=== PATIENT | female | born 1935 | race Caucasian/White ===

== ENCOUNTER 2019-05-13 12:17 | Day surgery (SDC) | payer MEDICARE, OTHER ==
--- NOTE | 2019-05-13 07:23 | History and Physical - Ferro ---
CHIEF COMPLAINT/HISTORY OF CHIEF COMPLAINT: This patient presents with a history of an intractable post lumbar laminectomy radiculopathy. Due to the failure of all therapies, the patient is here for an intraspinal catheter infusion trial of Hydromorphone to determine if the implantation of a permanent system can be of value in pain control. PAST MEDICAL HISTORY: Noncontributory. PAST SURGICAL HISTORY: List to be provided, does include spinal surgery. EMPLOYMENT STATUS: Retired. MEDICATIONS ON ADMISSION: List to be provided. No blood thinners. ALLERGIES: BIAXIN AND ANA INHIBITORS. FAMILY/PSYCHOSOCIAL HISTORY: Social history - Noncontributory. Family history - Diabetes. SYSTEMS REVIEW: The patient is appropriate in no acute distress. The remainder of the systems review is positive for glasses and degenerative arthritis. PHYSICAL EXAMINATION: Height is 5'6", weight is 120. No vital signs. HEENT: Within normal limits. LUNGS: Clear. HEART: Rapid and regular. ABDOMEN: Nontender. MUSCULOSKELETAL: Examination of the musculoskeletal system shows diffuse tenderness lumbar spine. Range of motion does produce pain into the left leg across the outer front surface. Ambulation - Somewhat antalgic. Mild motor and sensory abnormalities to the left. NEUROLOGIC: Cranial nerves are intact. IMPRESSION: POST LUMBAR LAMINECTOMY SYNDROME, ICD-10 CODE M96.1 WITH RADICULOPATHY, ICD-10 CODE M54.16 AND M54.17. PLAN: The patient is here for an implanted spinal catheter infusion trial of Hydromorphone to determine if the implantation of a permanent pump can be of any value in pain control. The procedure will be considered outpatient, although an overnight stay will be evaluated. The potential risks, side effects, and complications have all been reviewed and discussed. JOB NUMBER: [id number] [facility]
[~2019-05-13 12:17] MED LIST: ACETAMINOPHEN 1,000 MG/100 ML BTL IVPB ONE; CEFAZOLIN 2 Gram 2 GM/50 ML BAG IVPB ONE; FAMOTIDINE 20MG TABLET PO ONE; HYDROMORPHONE IV ONE; HYDROMORPHONE PF 2MG/ML AMP 0.008 MG in 0.9 % SODIUM CHLORIDE 10ML VIA 0.996 ML IV ONE; MECLIZINE 25 MG TABLET PO ONE; METOCLOPRAMIDE 10 MG TABLET PO ONE; SODIUM CHLORIDE 0.9% IV ONE
[2019-05-13] MEDS ORDERED: PROPOFOL 10 MG/ML VIAL IV ONE (12:18)
[2019-05-13] MEDS ORDERED: MIDAZOLAM HCL 2MG/2ML VIAL IV ONE (12:18)
[2019-05-13] MEDS ORDERED: LIDOCAINE 2% MDV (20MG/ML) 20ML VIAL IV ONE (12:18)
[2019-05-13] MEDS ORDERED: FENTANYL PF 100MCG/2ML VIAL IV ONE (12:18)
[2019-05-13] MEDS ORDERED: RINGERS SOLUTION,LACTATED 1,000 ML IV ONE ×2 (13:05→16:00)
[2019-05-13] MEDS ORDERED: LIDOCAINE 1% W/EPI 1:100,000 MDV 20 ML VIAL SQ ONE (14:56)
[2019-05-13] MEDS ORDERED: BUPIVACAINE 0.5% W/EPI MPF 30 ML VIAL SQ ONE (14:56)
[2019-05-13] MEDS ORDERED: CEFAZOLIN 1G VIAL IR ONE (14:56)
[2019-05-13] MEDS ORDERED: CAFFEINE/SODIUM BENZOATE 250MG 500 MG in 0.9 % SODIUM CHLORIDE 100ML 100 ML IVPB ONE (15:56)
[2019-05-13] MEDS ORDERED: METOCLOPRAMIDE 10 MG TABLET PO PRN (16:45)
[2019-05-13] MEDS ORDERED: SENNOSIDES/DOCUSATE SODIUM UD CAPSULE PO PRN ×2 (16:45)
[2019-05-13] MEDS ORDERED: HYDROMORPHONE HCL 2 MG/ML VIAL IM PRN ×2 (16:45)
[2019-05-13] MEDS ORDERED: DIPHENHYDRAMINE HCL 25 MG CAPSULE PO PRN ×2 (16:45)
[2019-05-13] MEDS ORDERED: AL HYDROX/MAG HYDROX 30ML UD PO PRN (16:45)
[2019-05-13] MEDS ORDERED: OXYCODONE/APAP 10MG-325MG TABLET PO PRN ×2 (16:45)
[2019-05-13] MEDS ORDERED: ACETAMINOPHEN 325 MG TAB PO PRN (16:45)
[2019-05-13] MEDS ORDERED: METOCLOPRAMIDE HCL 10 MG/2 ML VIAL IVP PRN (16:45)
[2019-05-13] MEDS ORDERED: HYDROCODONE/APAP 7.5/325MG TABLET PO PRN ×2 (16:45)
[2019-05-13] MEDS ORDERED: TEMAZEPAM 15 MG CAPSULE PO PRN (16:45)
[2019-05-13] MEDS ORDERED: NALOXONE 0.4 MG/1 ML VIAL IVP PRN (16:45)
[2019-05-13] MEDS ORDERED: DIPHENHYDRAMINE HCL 50 MG/ML VIAL IVP PRN ×2 (16:45)
[2019-05-13] MEDS ORDERED: CAFFEINE/SODIUM BENZOATE 250MG 500 MG in 0.9 % SODIUM CHLORIDE 100ML 100 ML IVP ONE (19:45)
[2019-05-13] MEDS: RINGERS SOLUTION,LACTATED 1,000 ML IV SCH (19:48)
[2019-05-13] MEDS ORDERED: ATORVASTATIN 20 MG TABLET PO SCH (22:00)
[2019-05-13] MEDS: CEFAZOLIN 2 Gram 2 GM/50 ML BAG IVPB SCH (22:09)
[2019-05-14] MEDS: RINGERS SOLUTION,LACTATED 1,000 ML IV SCH (02:30)
[2019-05-14] MEDS: CEFAZOLIN 2 Gram 2 GM/50 ML BAG IVPB SCH (06:08)
[2019-05-14] MEDS ORDERED: LEVOTHYROXINE SODIUM 25 MCG TABLET PO SCH (07:00)
--- NOTE | 2019-05-14 08:36 | Operative Note - Ferro ---
DATE OF SURGERY: 05/13/2019 PREOPERATIVE DIAGNOSIS: POST LUMBAR LAMINECTOMY RADICULOPATHY, ICD-10 CODE M96.1 WITH M54.16 AND M54.17. OPERATION: 1. FLUOROSCOPICALLY GUIDED SPINAL ACCESS INTO L3-L4, PLACEMENT OF THIN WALLED SPINAL CATHETER T12-L1. 2. DIAGNOSTIC MYELOGRAPHY WITH RADIOLOGIC SUPERVISION AND INTERPRETATION. 3. SPINAL OPIOID BOLUS HYDROMORPHONE 0.0025 MG. 4. INCISION, SUBCUTANEOUS DISSECTION, ANCHORING OF SPINAL CATHETER TO THE SUPRASPINOUS FASCIA WITH A [employer] ANCHOR AND NONABSORBABLE SUTURE. 5. INCISION, SUBCUTANEOUS DISSECTION, AND CREATION OF SUBCUTANEOUS POUCH AT RIGHT POSTERIOR GLUTEAL MARGIN ULTIMATELY FOR PUMP, CREATION OF SMALL SUBCUTANEOUS POUCH. 6. TUNNELLING MIDLINE CATHETER INTO POSTERIOR POUCH, EXTENDING SPINAL CATHETER INTO POUCH, INTERFACE SPINAL CATHETER WITH SECOND CATHETER COMPONENT BY WAY OF A CONNECTOR. 7. TUNNELLING SECONDARY CATHETER COMPONENT 6 CM EXITING SKIN, INTERFACE EXTERNAL CATHETER, EXTERNAL PUMP SET TO DELIVER HYDROMORPHONE 0.04 MG A DAY. 8. CLOSURE OF MIDLINE INCISION VICRYL FOR FASCIA AND GIAN FOR SKIN, CLOSURE OF RIGHT POSTERIOR POUCH RUNNING NYLON. 9. DRESSING PLACED TO SECURE CATHETER AND ALL COMPONENTS UNDER STERILE DRESSING. 10. NO EPIDURAL BLOOD PATCH BECAUSE OF MULTIPLE LEVEL LAMINECTOMY AND NO ACCESS. SURGEON: Paras Manzo D.O. ANESTHESIA: Local sedation. ANESTHESIA PROVIDER: SHAKILA Carroll CRNA INDICATION: This patient presents with a history of an intractable post lumbar laminectomy radiculopathy. Due to the failure of all therapies, the patient is here for an implanted spinal catheter infusion trial with Hydromorphone to determine if the implantation of a permanent system can be of any value in pain control. PROCEDURE: Intravenous line, vital sign monitoring, IV sedation, prepped and draped, sterile technique. The patient was positioned prone. Sterile prep, sterile technique. The spinal interspace at L3-L4 was identified, marked, skin infiltrated, using a 20-gauge needle paramedian approach with bevel along the long axis into the space using AP and lateral imaging for guidance. With CSF flow a thin walled spinal catheter was advanced, positioned at T12-L1. Diagnostic myelography was performed and the resulting flow characteristics were appropriate for the space. There was still CSF through the catheter noted. A bolus of Hydromorphone at 0.0025 mg was given. The catheter was clamped to stop CSF leak. The skin above and below the needle was infiltrated, an incision was made, and subcutaneous dissection was conducted to the supraspinous fascia. The needle was removed and the catheter was anchored to the supraspinous fascia with [employer] anchor and nonabsorbable suture. A site picked by the patient for the pump at the right posterior gluteal margin was infiltrated, an incision was made, and subcutaneous dissection was conducted to form a small subcutaneous pouch. The midline spinal catheter was tunnelled to this pouch. Once into the pouch the catheter was interfaced with the second catheter component by way of a connector. The second catheter component was then tunnelled 6 cm superior exiting the skin. The external catheter was interfaced with an external pump which was set to deliver Hydromorphone at 0.04 mg a day. The midline incision was closed using Vicryl for fascia, and gian for the skin. The posterior pouch was closed with running nylon. Dressings were placed securing the catheter and all connections under a sterile dressing. The patient was transported to the Recovery Room stable, flat, pillow under head and knees. Although no blood patch was performed she will be kept flat for four, slowly elevated for one and be given an intravenous caffeine infusion prophylactically times two while she stays overnight. She will be discharged in the morning. DISCHARGE INSTRUCTIONS: 1. The sites are to remain clean and dry. No showering or bathing in any way that would disrupt the dressings. If it happens contact the clinic. 2. Standard medications will be resumed including the antibiotic Levaquin 500 mg once a day for fourteen days. 3. The trial will run two weeks, fourteen days. During this period of time the patient will come to the clinic for three possible increases. At the end of the trial period we will either implant the pump or remove the implanted catheter. Potential side effects from the spinal opioids are: respiratory depression, nausea, vomiting, constipation, urinary retention, and rash have all been discussed and reviewed. She will be kept overnight and discharged in the morning. JOB NUMBER: [id number] MTDD
[2019-05-14] MEDS ORDERED: PIOGLITAZONE HCL 15 MG TABLET PO SCH (10:00)
--- NOTE | 2019-05-14 15:54 | RADIOLOGY REPORT ---
EXAMINATION: Portable AP Spine Single View EXAM DATE: 05/13/2019 3:51 PM TECHNIQUE: Portable AP view at 1537. INDICATION: PAIN PUMP TRIAL COMPARISON: Lumbar spine radiographs, 02/21/2019. ENCOUNTER: Initial FINDINGS: Wires are noted extending to the lumbar spine from L1 to L3. Midline skin gian are seen. No other new/acute findings are noted. IMPRESSION: Pump wires noted to the lumbar spine. Marked dextroscoliosis. Spondylosis. Lower lumbar laminectomy defects. Dictated by: Kandy Mcknight MD on 05/14/2019 3:49 PM. .
== END 2019-05-14 09:45 | disposition home or self-care (01) ==
LOC: SUR 12:17 → MEDSURG 16:30 → SUR 05-14 09:45
PROVIDERS: ATTEND Pain Medicine Interventional Pain Medicine
DX: M96.1 Postlaminectomy syndrome, not elsewhere classified (principal); M54.16 Radiculopathy, lumbar region; M54.17 Radiculopathy, lumbosacral region; E78.00 Pure hypercholesterolemia, unspecified; E11.9 Type 2 diabetes mellitus without complications; E03.9 Hypothyroidism, unspecified; H40.9 Unspecified glaucoma; Z86.718 Personal history of other venous thrombosis and embolism
CPT/HCPCS: 62350; 62362; 01936; 36416; 82948; 72020; Q9967; C1887; J3010; J0690 ×2; J1170; J3490; J7040; J7120

== ENCOUNTER 2019-05-27 09:34 | Day surgery (SDC) | payer MEDICARE, OTHER ==
--- NOTE | 2019-05-27 06:54 | History and Physical - Ferro ---
CHIEF COMPLAINT/HISTORY OF CHIEF COMPLAINT: This patient presents with a history of a post lumbar laminectomy radiculopathy. Due to the failure of all therapies, an implanted spinal catheter infusion trial Hydromorphone has been ongoing. Her current infusion rate is 0.08 mg over twenty-four hours. Symptom or pain control is 75+%. Due to the failure of all therapies and the success of the trial, she is here for permanent implantation. PAST MEDICAL HISTORY: Unchanged. PAST SURGICAL HISTORY: Unchanged. MEDICATIONS ON ADMISSION: Unchanged. ALLERGIES: BIAXIN AND ANA INHIBITORS. FAMILY/PSYCHOSOCIAL HISTORY: Social history - Unchanged. Family history - Unchanged. SYSTEMS REVIEW: The patient is appropriate in no acute distress. The remainder of the systems review is unchanged. PHYSICAL EXAMINATION: Height is 5'6", weight is 120. Vital signs are not identified. HEENT: Within normal limits. LUNGS: Clear. HEART: Rapid and regular. ABDOMEN: Nontender. MUSCULOSKELETAL: Examination of the musculoskeletal system shows the dressings for the implanted catheter trial to be intact. The external infusion device is functioning properly. Dressings are intact. NEUROLOGIC: Cranial nerves are intact. The underlying symptom pattern is unchanged. IMPRESSION: 1. POST LUMBAR LAMINECTOMY SYNDROME, ICD-10 CODE M96.1 WITH LUMBAR RADICULOPATHY, ICD-10 CODE M54.16 AND M54.17. 2. IMPLANTED SPINAL CATHETER INFUSION TRIAL HYDROMORPHONE. PLAN: With respect to the device everything seems to be going well. Obviously she has had a good trial and is requesting progression to the permanent implant. We will remove all of the external components, implant the device and interface it to the indwelling catheter. The procedure will be considered outpatient although an overnight stay will be evaluated. [facility]: [id number] [facility]
[~2019-05-27 09:34] MED LIST changes: +HYDROMORPHONE HCL 0.02 GM in 0.9 % SODIUM CHLORIDE 10ML VIA 20 ML IV ONE; -HYDROMORPHONE IV ONE; -SODIUM CHLORIDE 0.9% IV ONE
[2019-05-27] MEDS ORDERED: PROPOFOL 10 MG/ML VIAL IV ONE (09:35)
[2019-05-27] MEDS ORDERED: LIDOCAINE 2% MDV (20MG/ML) 20ML VIAL IV ONE (09:35)
[2019-05-27] MEDS ORDERED: MIDAZOLAM HCL 2MG/2ML VIAL IV ONE (09:35)
[2019-05-27] MEDS ORDERED: FENTANYL PF 100MCG/2ML VIAL IV ONE (09:35)
[2019-05-27] MEDS ORDERED: RINGERS SOLUTION,LACTATED 1,000 ML IV ONE (10:00)
[2019-05-27] MEDS ORDERED: LIDOCAINE 1% W/EPI 1:200,000 MPF 30ML SQ ONE (12:15)
[2019-05-27] MEDS ORDERED: CEFAZOLIN 1G VIAL IR ONE (12:15)
[2019-05-27] MEDS ORDERED: BUPIVACAINE 0.5% W/EPI MPF 30 ML VIAL SQ ONE (12:15)
[2019-05-27] MEDS ORDERED: HYDROCODONE/APAP 7.5/325MG TABLET PO ONE (13:09)
--- NOTE | 2019-05-28 08:01 | Operative Note - Ferro ---
DATE OF SURGERY: 05/27/2019 PREOPERATIVE DIAGNOSIS: POST LUMBAR LAMINECTOMY SYNDROME, ICD-10 CODE M96.1 WITH IMPLANTED SPINAL CATHETER INFUSION TRIAL HYDROMORPHONE. OPERATION: 1. FLUOROSCOPICALLY GUIDED INCISION, SUBCUTANEOUS DISSECTION, AND REMOVAL OF EXTERNAL CATHETER TO EXTERNAL PUMP. 2. INCISION, SUBCUTANEOUS DISSECTION, REVISION AND RESECTION OF INTERNAL SPINAL CATHETER WITH SECOND CATHETER COMPONENT BY WAY OF A CONNECTOR, INTERFACE SPINAL CATHETER TO SECOND CATHETER COMPONENT FOR PUMP. 3. INCISION. SUBCUTANEOUS DISSECTION, AND FORMATION OF SUBCUTANEOUS POUCH AT RIGHT POSTERIOR GLUTEAL MARGIN FOR PLACEMENT OF PUMP IDENTIFIED A [employer] 20 ML PROGRAMMABLE. 4. PLACEMENT OF PUMP ONTO FIELD, PREFILLED HYDROMORPHONE 1 MG PER ML, INTERFACE TO REVISE CATHETER, PLACED INTO POUCH, SECURED TO POSTERIOR FASCIA WITH NONABSORBABLE SUTURE, THREE POINTS PUMP EYELETS. 5. WITH PUMP IN POUCH PLACEMENT OF CURVED 24-GAUGE MONIQUE NEEDLE TO ACCESS PORT, ACCESS AND REMOVE 1 ML CATHETER CONTENTS CLEARING PUMP CATHETER OF OPIOID AND CSF MIXTURE. 6. DIAGNOSTIC MYELOGRAPHY THROUGH ACCESS PORT WITH RADIOLOGIC SUPERVISION AND INTERPRETATION CONFIRMING CATHETER FUNCTIONALITY AND PUMP INTEGRITY. 7. CLOSURE OF INCISION USING STRATAFIX SUTURE 2-0 FASCIA AND 3-0 SKIN. DERMABOND CLOSURE. 8. PROGRAMMING OF PUMP TO DELIVER BY CONTINUOUS INFUSION HYDROMORPHONE AT 0.05 MG A DAY. SURGEON: Paras Manzo D.O. ANESTHESIA: Local sedation. ANESTHESIA PROVIDER: Roshan Huber CRNA INDICATION: This patient presents with history of an intractable lumbar radiculopathy post laminectomy in nature. Due to the failure of therapy an implanted spinal catheter trial was conducted with Hydromorphone with 75% relief. Due to the failure of therapy and the success of the trial, the patient presents by her request for implantation of a permanent system. PROCEDURE: Intravenous line, vital sign monitoring, IV sedation, prepped and draped, sterile technique. The patient is positioned prone. Sterile prep, sterile technique. The previous pouch at the right posterior gluteal margin was infiltrated with local, an incision was made, and subcutaneous dissection was conducted to the deep fascia. The internal spinal catheter connection to the external catheter was clamped, cut, and the external catheter was removed by pulling away from the incision. The permanent internal spinal catheter was then revised, resected, interfaced to a second catheter component from the pump by way of connector. A pump identified as 20 ml programmable prefilled Hydromorphone placed onto the field, and then interfaced with the revised catheter. At the right flank incision the skin was infiltrated and the incision and the pouch was widened to accommodate the pump 20 ml programmable. Antibiotic irrigation, Bovie for hemostasis. Three nonabsorbable sutures were then used by way of the pump eyelets to secure the pump to the posterior pouch. The pump was placed into the pouch, secured to the posterior fascia by way of the nonabsorbable suture and then a 24-gauge Monique needle was inserted into the access port. 1 ml of catheter contents was aspirated to clean the catheter of opioid and CSF mixture. Diagnostic myelography was then performed through the access port, the resulting flow characteristics identified under imaging and radiologic supervision and interpretation confirming connections. No leaks, kinks or bends. The tip of the catheter was identified at T12-L1 with appropriate myelogram flow characteristics. Functionality noted. The incision was then closed using Stratafix suture 2-0 fascia and 3-0 skin. Dermabond closure. The pump was programmed to deliver by continuous infusion Hydromorphone at 0.05 mg a day. Alarm set. The patient was transported to the Recovery Room stable. The Dermabond dressing is in place securing the incisional wound. She was monitored until stable. She showed no side effects. She was then prepared for discharge. DISCHARGE INSTRUCTIONS: 1. The sites will remain clean and dry. No showering or bathing in any way that would disrupt the dressings. If it happen contact the clinic. 2. Standard medications will be resumed. She will complete her Levaquin antibiotic therapy for another ten days and at that point it will be discontinued. 3. Office to contact the patient in 12-24 hours to set up a time in 7-10 days for us to evaluate the incision. Through this period of time she to keep her activities low. 4. Spinal opioid side effects respiratory depression, nausea, vomiting, constipation, urinary retention, and rash have all been reviewed and discussed. If they happen contact the clinic. All other instructions provided. She was then prepared for discharge. JOB NUMBER: [id number] MTDD
--- NOTE | 2019-05-28 21:41 | RADIOLOGY REPORT ---
EXAMINATION: Lumbar Spine Single View EXAM DATE: 05/27/2019 12:56 PM TECHNIQUE: Frontal view of the lumbar spine. INDICATION: PAIN PUMP IMPLANT COMPARISON: Radiograph May 13, 2019. ENCOUNTER: Initial FINDINGS: Pain pump device overlying the right flank pain with attached catheter tip terminating at T12-L1. Dextroconvex scoliotic curvature of the lumbar spine. Multilevel degenerative changes throughout the spine. There are laminectomy defects again noted. Dictated by: Shorty Duval DO on 05/28/2019 9:33 PM. .
== END 2019-05-27 13:23 | disposition home or self-care (01) ==
LOC: SUR 09:34
PROVIDERS: ATTEND Pain Medicine Interventional Pain Medicine
DX: M96.1 Postlaminectomy syndrome, not elsewhere classified (principal); E78.00 Pure hypercholesterolemia, unspecified; E11.9 Type 2 diabetes mellitus without complications; E03.9 Hypothyroidism, unspecified; Z86.718 Personal history of other venous thrombosis and embolism
CPT/HCPCS: 36416; 62367; 72020; 82948; C1755; C1776; J0690; J7120